=== PATIENT | male | born 1980 | race Caucasian/White ===

== ENCOUNTER 2022-05-18 21:29 | Emergency (ER) | payer OTHER ==
[~2022-05-18] VITALS: Ht 182.9 cm; Wt 113.4 kg
[~2022-05-18 21:29] MED LIST: IBUPROFEN800 MG PO; NORCO 5-325 TA1 EACH PO
[2022-05-18] MEDS ORDERED: AMOX TR-K CLV1 EAC1 PO (22:34)
== END 2022-05-18 23:02 | disposition home or self-care (01) ==
LOC: ED 21:29
DX: S51.852A Open bite of left forearm, initial encounter (principal); W54.0XXA Bitten by dog, initial encounter; Z23 Encounter for immunization
CPT/HCPCS: 12004; 90471; 90714; 99283-25